=== PATIENT | female | born 1955 | race Caucasian/White ===

== ENCOUNTER 2021-04-08 12:24 | Inpatient (IN) | payer OTHER, MEDICAID ==
[~2021-04-08] VITALS: Ht 160 cm; Wt 49.0 kg
[~2021-04-08 12:24] MED LIST: ENAL5TAB10; FLUT250M9; GABA300C10; INSLANTI; METF-370; NAPR-223; NOVOLIN R; RABE20TA19; SIMV-8
[2021-04-08] MEDS ORDERED: SODIUM CHLORIDE 0.9% 500 ML IV ONE (12:45)
[2021-04-08] MEDS ORDERED: TETANUS-DIPTH-ACEL PERTUSSIS 0.5ML SYR Tdap IM ONE (12:45)
[2021-04-08] MEDS: AMPICILLIN & SULBACTAM SODIUM 3 GM in SODIUM CHL 0.9% 100 ML IV SCH ×2 (13:20→19:31)
[2021-04-08 13:26] LABS: Basophils # (auto) 0 10 ^3/uL (0-0.2); Basophils % (auto) 0.2 % (0.0-2.0); Eosinophils # (auto) 0 10 ^3/uL (0-0.8); Eosinophils % (auto) 0.4 % (0.0-7.0); Hemoglobin 13.2 g/dL (12.2-16.2); Lymphocytes # (auto) 1.1 10 ^3/uL (0.4-5.4); Mean Corpuscular Hemoglobin 29.4 pg (28.0-32.0); Mean Corpuscular Hgb Conc. 33.8 g/dL (32.0-36.0); Neutrophils # (auto) 7.3 10 ^3/uL (1.6-8.6); Neutrophils % (auto) 76.4 % (37.0-80.0); Red Blood Cells 4.48 10^6/uL (4.0-5.20); Red Cell Distribution Width 13.1 % (11.8-14.3); White Blood Cell 9.6 10^3/uL (4.4-10.8)
[2021-04-08 13:47] LABS: Albumin 3.1 g/dL (3.4-5.0); BUN/Creatinine Ratio 11.7; Calcium 8.7 mg/dL (8.5-10.1); Potassium 3.8 mmol/L (3.5-5.1)
[2021-04-08 13:50] LABS: Bilirubin, Total 0.6 mg/dL (0.2-1.0); Total Protein 7.1 g/dL (6.4-8.2)
[2021-04-08] MEDS ORDERED: cloNIDine HCL 0.1 MG TAB PO ONE (15:00)
[2021-04-08] MEDS ORDERED: ACETAMINOPHEN 325 MG TAB PO PRN (17:00)
[2021-04-08] MEDS ORDERED: DOCUSATE SOD 100 MG CAP PO PRN (17:00)
[2021-04-08] MEDS ORDERED: SODIUM CHLORIDE 0.9% 1,000 ML IV SCH (17:00)
[2021-04-08] MEDS ORDERED: ONDANSETRON HCL 4 MG/2 ML VIAL IV PRN (17:00)
[2021-04-08] MEDS ORDERED: DEXTROSE (50%) 50ML SYRG IV PRN (17:30)
[2021-04-08] MEDS: SODIUM CHLORIDE 0.9% 1,000 ML IV SCH (17:49)
[2021-04-08] MEDS: hydrALAZINE HCL 25 MG TAB PO PRN (19:39)
[2021-04-08] MEDS: ACCU-CHEK COMFORT CURVE STRIP VI SCH (21:51)
[2021-04-08] MEDS: InsuLIN REG 1unit/0.01ml Soln (100units/ml) SC SCH (21:52)
[2021-04-08] MEDS: NIFEdipine 10 MG CAP PO SCH (22:00)
[2021-04-08] MEDS: INSULIN LANTUS (GLARGINE) 1 /0.01ml (100units/ml) SC SCH (22:00)
[2021-04-08] MEDS: HYDROcodone-ACET 5/325MG TAB PO PRN (22:42)
[2021-04-09] MEDS: AMPICILLIN & SULBACTAM SODIUM 3 GM in SODIUM CHL 0.9% 100 ML IV SCH ×5 (00:45→21:47)
[2021-04-09] MEDS: NIFEdipine 10 MG CAP PO SCH ×3 (06:00→21:58)
[2021-04-09 06:09] LABS: Basophils # (auto) 0 10 ^3/uL (0-0.2); Basophils % (auto) 0.3 % (0.0-2.0); Eosinophils # (auto) 0.1 10 ^3/uL (0-0.8); Eosinophils % (auto) 0.8 % (0.0-7.0); Hematocrit 32.5 % (36.0-46.0); Hemoglobin 11.5 g/dL (12.2-16.2); Lymphocytes # (auto) 1.4 10 ^3/uL (0.4-5.4); Lymphocytes % (auto) 19.4 % (10.0-50.0); Mean Corpuscular Hemoglobin 30.3 pg (28.0-32.0); Mean Corpuscular Hgb Conc. 35.5 g/dL (32.0-36.0); Mean Corpuscular Volume 85.5 fL (80.0-100.0); Monocytes # (auto) 0.7 10 ^3/uL (0-1.3); Monocytes % (auto) 10.4 % (0.0-12.0); Neutrophils # (auto) 4.9 10 ^3/uL (1.6-8.6); Neutrophils % (auto) 69.1 % (37.0-80.0); Red Cell Distribution Width 13.2 % (11.8-14.3); White Blood Cell 7.1 10^3/uL (4.4-10.8)
[2021-04-09] MEDS: ACCU-CHEK COMFORT CURVE STRIP VI SCH ×4 (06:26→21:47)
[2021-04-09] MEDS: InsuLIN REG 1unit/0.01ml Soln (100units/ml) SC SCH ×4 (06:27→21:57)
[2021-04-09 06:32] LABS: Potassium 3.3 mmol/L (3.5-5.1)
[2021-04-09 06:38] LABS: Albumin 2.3 g/dL (3.4-5.0); BUN/Creatinine Ratio 13.9; Calcium 8.1 mg/dL (8.5-10.1)
[2021-04-09 06:41] LABS: Bilirubin, Total 0.3 mg/dL (0.2-1.0); Total Protein 5.6 g/dL (6.4-8.2)
[2021-04-09] MEDS: SODIUM CHLORIDE 0.9% 1,000 ML IV SCH ×2 (06:45→20:10)
[2021-04-09] MEDS: HYDROcodone-ACET 5/325MG TAB PO PRN ×3 (06:46→20:40)
[2021-04-09 09:00] VITALS: BP 125/66
[2021-04-09] MEDS: ENOXAPARIN SOD 30 MG/0.3 ML SYRINGE SC SCH (09:57)
[2021-04-09 13:00] VITALS: BP 144/114
[2021-04-09 17:44] VITALS: BP 147/80
[2021-04-09] MEDS: INSULIN LANTUS (GLARGINE) 1 /0.01ml (100units/ml) SC SCH (21:57)
[2021-04-09 22:00] VITALS: BP 132/85
[2021-04-10 05:00] VITALS: BP 165/78
[2021-04-10] MEDS: NIFEdipine 10 MG CAP PO SCH ×3 (05:10→22:03)
[2021-04-10] MEDS: ACCU-CHEK COMFORT CURVE STRIP VI SCH ×4 (06:18→22:04)
[2021-04-10] MEDS: InsuLIN REG 1unit/0.01ml Soln (100units/ml) SC SCH ×4 (06:18→22:16)
[2021-04-10 07:06] LABS: Basophils # (auto) 0 10 ^3/uL (0-0.2); Basophils % (auto) 0.3 % (0.0-2.0); Eosinophils # (auto) 0.1 10 ^3/uL (0-0.8); Eosinophils % (auto) 1.3 % (0.0-7.0); Hematocrit 33.6 % (36.0-46.0); Lymphocytes # (auto) 1.4 10 ^3/uL (0.4-5.4); Lymphocytes % (auto) 15.2 % (10.0-50.0); Mean Corpuscular Hemoglobin 30.3 pg (28.0-32.0); Mean Corpuscular Hgb Conc. 35.6 g/dL (32.0-36.0); Mean Corpuscular Volume 85.1 fL (80.0-100.0); Monocytes # (auto) 0.8 10 ^3/uL (0-1.3); Monocytes % (auto) 8.6 % (0.0-12.0); Neutrophils % (auto) 74.6 % (37.0-80.0); Nucleated Red Blood Cells % 0.1 %; Red Blood Cells 3.95 10^6/uL (4.0-5.20); Red Cell Distribution Width 13.5 % (11.8-14.3); White Blood Cell 9.4 10^3/uL (4.4-10.8)
[2021-04-10 07:35] LABS: Potassium 3.3 mmol/L (3.5-5.1)
[2021-04-10 07:41] LABS: Albumin 2.4 g/dL (3.4-5.0); Calcium 8.2 mg/dL (8.5-10.1)
[2021-04-10 07:44] LABS: Bilirubin, Total 0.2 mg/dL (0.2-1.0)
[2021-04-10] MEDS: HYDROcodone-ACET 5/325MG TAB PO PRN (08:33)
[2021-04-10 09:00] VITALS: BP 140/73
[2021-04-10] MEDS: SODIUM CHLORIDE 0.9% 1,000 ML IV SCH (09:30)
[2021-04-10] MEDS: AMPICILLIN & SULBACTAM SODIUM 3 GM in SODIUM CHL 0.9% 100 ML IV SCH ×2 (09:43→22:02)
[2021-04-10] MEDS: ENOXAPARIN SOD 30 MG/0.3 ML SYRINGE SC SCH (09:44)
[2021-04-10 13:00] VITALS: BP 146/75
[2021-04-10 17:00] VITALS: BP 137/88
[2021-04-10 21:49] VITALS: BP 96/76
[2021-04-10] MEDS: INSULIN LANTUS (GLARGINE) 1 /0.01ml (100units/ml) SC SCH (22:17)
[2021-04-11] VITALS (7 sets, daily range): BP systolic 112–156; BP diastolic 68–95
[2021-04-11] MEDS: NIFEdipine 10 MG CAP PO SCH ×3 (05:08→22:39)
[2021-04-11] MEDS: ACCU-CHEK COMFORT CURVE STRIP VI SCH ×4 (06:04→22:52)
[2021-04-11] MEDS: InsuLIN REG 1unit/0.01ml Soln (100units/ml) SC SCH ×4 (06:04→22:54)
[2021-04-11] MEDS: ENOXAPARIN SOD 30 MG/0.3 ML SYRINGE SC SCH (09:43)
[2021-04-11] MEDS: AMPICILLIN & SULBACTAM SODIUM 3 GM in SODIUM CHL 0.9% 100 ML IV SCH ×2 (09:43→22:51)
[2021-04-11] MEDS: HYDROcodone-ACET 5/325MG TAB PO PRN (22:41)
[2021-04-11] MEDS: INSULIN LANTUS (GLARGINE) 1 /0.01ml (100units/ml) SC SCH (22:52)
[2021-04-12 05:00] VITALS: BP 150/79
[2021-04-12 05:23] LABS: Basophils # (auto) 0 10 ^3/uL (0-0.2); Basophils % (auto) 0.6 % (0.0-2.0); Eosinophils # (auto) 0.2 10 ^3/uL (0-0.8); Eosinophils % (auto) 3.4 % (0.0-7.0); Hematocrit 32.4 % (36.0-46.0); Hemoglobin 11.2 g/dL (12.2-16.2); Lymphocytes # (auto) 1.4 10 ^3/uL (0.4-5.4); Lymphocytes % (auto) 25.7 % (10.0-50.0); Mean Corpuscular Hemoglobin 29.7 pg (28.0-32.0); Mean Corpuscular Hgb Conc. 34.7 g/dL (32.0-36.0); Mean Corpuscular Volume 85.8 fL (80.0-100.0); Monocytes # (auto) 0.6 10 ^3/uL (0-1.3); Monocytes % (auto) 11.2 % (0.0-12.0); Neutrophils # (auto) 3.3 10 ^3/uL (1.6-8.6); Neutrophils % (auto) 59.1 % (37.0-80.0); Nucleated Red Blood Cells % 0.1 %; Red Blood Cells 3.78 10^6/uL (4.0-5.20); Red Cell Distribution Width 13.1 % (11.8-14.3); White Blood Cell 5.5 10^3/uL (4.4-10.8)
[2021-04-12 05:46] LABS: Albumin 2.3 g/dL (3.4-5.0); BUN/Creatinine Ratio 21.1; Calcium 8.6 mg/dL (8.5-10.1); Potassium 3.5 mmol/L (3.5-5.1)
[2021-04-12] MEDS: NIFEdipine 10 MG CAP PO SCH ×3 (05:51→22:00)
[2021-04-12 05:56] LABS: Bilirubin, Total 0.2 mg/dL (0.2-1.0); Total Protein 5.9 g/dL (6.4-8.2)
[2021-04-12] MEDS: InsuLIN REG 1unit/0.01ml Soln (100units/ml) SC SCH ×4 (06:12→22:29)
[2021-04-12] MEDS: ACCU-CHEK COMFORT CURVE STRIP VI SCH ×4 (06:12→22:00)
[2021-04-12 09:00] VITALS: BP 147/79
[2021-04-12] MEDS: AMPICILLIN & SULBACTAM SODIUM 3 GM in SODIUM CHL 0.9% 100 ML IV SCH ×2 (09:44→22:00)
[2021-04-12] MEDS: ENOXAPARIN SOD 30 MG/0.3 ML SYRINGE SC SCH (09:44)
[2021-04-12 13:00] VITALS: BP 155/76
[2021-04-12 16:50] VITALS: BP 165/78
[2021-04-12] MEDS: hydrALAZINE HCL 25 MG TAB PO PRN (17:33)
[2021-04-12 21:50] VITALS: BP 180/81
[2021-04-12] MEDS: INSULIN LANTUS (GLARGINE) 1 /0.01ml (100units/ml) SC SCH (22:28)
[2021-04-13 05:01] LABS: Basophils # (auto) 0 10 ^3/uL (0-0.2); Basophils % (auto) 0.6 % (0.0-2.0); Eosinophils # (auto) 0.2 10 ^3/uL (0-0.8); Eosinophils % (auto) 2.5 % (0.0-7.0); Hematocrit 35.1 % (36.0-46.0); Lymphocytes # (auto) 1.5 10 ^3/uL (0.4-5.4); Lymphocytes % (auto) 21.3 % (10.0-50.0); Mean Corpuscular Hemoglobin 29.3 pg (28.0-32.0); Mean Corpuscular Hgb Conc. 34.3 g/dL (32.0-36.0); Mean Corpuscular Volume 85.7 fL (80.0-100.0); Monocytes # (auto) 0.8 10 ^3/uL (0-1.3); Monocytes % (auto) 11.4 % (0.0-12.0); Neutrophils # (auto) 4.4 10 ^3/uL (1.6-8.6); Neutrophils % (auto) 64.2 % (37.0-80.0); Red Cell Distribution Width 13.4 % (11.8-14.3); White Blood Cell 6.9 10^3/uL (4.4-10.8)
[2021-04-13 05:18] LABS: Albumin 2.5 g/dL (3.4-5.0); Calcium 8.8 mg/dL (8.5-10.1); Potassium 3.9 mmol/L (3.5-5.1)
[2021-04-13 05:20] LABS: BUN/Creatinine Ratio 22.4
[2021-04-13 05:23] LABS: Bilirubin, Total 0.2 mg/dL (0.2-1.0); Total Protein 6.5 g/dL (6.4-8.2)
[2021-04-13 05:40] VITALS: BP 145/80
[2021-04-13] MEDS: NIFEdipine 10 MG CAP PO SCH ×3 (06:13→21:22)
[2021-04-13] MEDS: ACCU-CHEK COMFORT CURVE STRIP VI SCH ×4 (06:59→21:22)
[2021-04-13] MEDS: InsuLIN REG 1unit/0.01ml Soln (100units/ml) SC SCH ×4 (07:00→21:52)
[2021-04-13 07:30] VITALS: BP 145/80
[2021-04-13 09:00] VITALS: BP 151/84
[2021-04-13] MEDS: AMPICILLIN & SULBACTAM SODIUM 3 GM in SODIUM CHL 0.9% 100 ML IV SCH ×2 (09:45→21:21)
[2021-04-13] MEDS: ENOXAPARIN SOD 30 MG/0.3 ML SYRINGE SC SCH (09:45)
[2021-04-13 12:36] VITALS: BP 171/93
[2021-04-13 16:52] VITALS: BP 163/89
[2021-04-13] MEDS: INSULIN LANTUS (GLARGINE) 1 /0.01ml (100units/ml) SC SCH (21:41)
[2021-04-13 21:52] VITALS: BP 166/119
[2021-04-14 05:00] VITALS: BP 156/103
[2021-04-14 05:35] LABS: Basophils # (auto) 0.1 10 ^3/uL (0-0.2); Basophils % (auto) 0.9 % (0.0-2.0); Eosinophils # (auto) 0.2 10 ^3/uL (0-0.8); Eosinophils % (auto) 2.5 % (0.0-7.0); Lymphocytes # (auto) 1.5 10 ^3/uL (0.4-5.4); Lymphocytes % (auto) 23.3 % (10.0-50.0); Mean Corpuscular Hemoglobin 29.5 pg (28.0-32.0); Mean Corpuscular Hgb Conc. 34.4 g/dL (32.0-36.0); Mean Corpuscular Volume 85.9 fL (80.0-100.0); Monocytes # (auto) 0.7 10 ^3/uL (0-1.3); Monocytes % (auto) 9.9 % (0.0-12.0); Neutrophils # (auto) 4.2 10 ^3/uL (1.6-8.6); Neutrophils % (auto) 63.4 % (37.0-80.0); Nucleated Red Blood Cells % 0.1 %; Red Blood Cells 4.08 10^6/uL (4.0-5.20); Red Cell Distribution Width 13.4 % (11.8-14.3); White Blood Cell 6.6 10^3/uL (4.4-10.8)
[2021-04-14 06:04] LABS: Albumin 2.6 g/dL (3.4-5.0); BUN/Creatinine Ratio 23.7; Bilirubin, Total 0.2 mg/dL (0.2-1.0); Calcium 8.5 mg/dL (8.5-10.1); Total Protein 6.5 g/dL (6.4-8.2)
[2021-04-14] MEDS: NIFEdipine 10 MG CAP PO SCH ×3 (06:18→21:33)
[2021-04-14] MEDS: ACCU-CHEK COMFORT CURVE STRIP VI SCH ×4 (06:18→21:13)
[2021-04-14] MEDS: InsuLIN REG 1unit/0.01ml Soln (100units/ml) SC SCH ×4 (06:33→21:14)
[2021-04-14 08:00] VITALS: BP 124/75
[2021-04-14 08:30] VITALS: BP 124/75
[2021-04-14] MEDS: AMPICILLIN & SULBACTAM SODIUM 3 GM in SODIUM CHL 0.9% 100 ML IV SCH ×2 (10:30→21:28)
[2021-04-14] MEDS: ENOXAPARIN SOD 30 MG/0.3 ML SYRINGE SC SCH (10:30)
[2021-04-14 12:30] VITALS: BP 166/73
[2021-04-14 17:00] VITALS: BP 166/77
[2021-04-14] MEDS: INSULIN LANTUS (GLARGINE) 1 /0.01ml (100units/ml) SC SCH (21:14)
[2021-04-14 22:00] VITALS: BP 172/92
[2021-04-15 05:00] VITALS: BP 156/92
[2021-04-15] MEDS: NIFEdipine 10 MG CAP PO SCH ×3 (06:12→21:55)
[2021-04-15] MEDS: InsuLIN REG 1unit/0.01ml Soln (100units/ml) SC SCH ×4 (06:12→21:47)
[2021-04-15] MEDS: ACCU-CHEK COMFORT CURVE STRIP VI SCH ×4 (06:12→21:48)
[2021-04-15 09:00] VITALS: BP 145/71
[2021-04-15] MEDS: ENOXAPARIN SOD 30 MG/0.3 ML SYRINGE SC SCH (10:58)
[2021-04-15] MEDS: AMPICILLIN & SULBACTAM SODIUM 3 GM in SODIUM CHL 0.9% 100 ML IV SCH ×2 (11:20→21:55)
[2021-04-15] MEDS: hydrALAZINE HCL 25 MG TAB PO PRN (11:32)
[2021-04-15 13:00] VITALS: BP 158/79
[2021-04-15 17:00] VITALS: BP 113/68
[2021-04-15] MEDS: INSULIN LANTUS (GLARGINE) 1 /0.01ml (100units/ml) SC SCH (21:48)
[2021-04-15 22:00] VITALS: BP 155/70
[2021-04-16 05:00] VITALS: BP 167/78
[2021-04-16] MEDS: InsuLIN REG 1unit/0.01ml Soln (100units/ml) SC SCH ×2 (06:19→11:57)
[2021-04-16] MEDS: ACCU-CHEK COMFORT CURVE STRIP VI SCH ×2 (06:20→11:55)
[2021-04-16] MEDS: NIFEdipine 10 MG CAP PO SCH (06:22)
[2021-04-16] MEDS: hydrALAZINE HCL 25 MG TAB PO PRN (06:23)
[2021-04-16 09:00] VITALS: BP 116/74
[2021-04-16] MEDS: ENOXAPARIN SOD 30 MG/0.3 ML SYRINGE SC SCH (10:03)
[2021-04-16] MEDS: HYDROcodone-ACET 5/325MG TAB PO PRN (10:04)
[2021-04-16] MEDS: AMPICILLIN & SULBACTAM SODIUM 3 GM in SODIUM CHL 0.9% 100 ML IV SCH (10:07)
[2021-04-16] MEDS ORDERED: AMOX500T86 PO (11:01)
[2021-04-16] MEDS ORDERED: HYDR-4902 PO (11:01)
[2021-04-16 13:00] VITALS: BP 152/88
[2021-04-16 13:11] VITALS: BP 167/78
== END 2021-04-16 13:55 | disposition home or self-care (01) | DRG 605 ==
LOC: ER 12:24 → TELE 16:44 → TELE-WESTW 20:55
PROVIDERS: ADMIT Internal Medicine; ATTEND Family Medicine
PROC: 05HC33Z Insertion of Infusion Device into Left Basilic Vein, Percutaneous Approach (ICD-10-PCS; principal; 2021-04-11)
PROC: B54NZZA Ultrasonography of Left Upper Extremity Veins, Guidance (ICD-10-PCS; 2021-04-11)
DX: S61.250A Open bite of right index finger without damage to nail, initial encounter (principal); N17.9 Acute kidney failure, unspecified; L03.011 Cellulitis of right finger; E11.9 Type 2 diabetes mellitus without complications; D64.9 Anemia, unspecified; G89.29 Other chronic pain; E87.6 Hypokalemia; F17.210 Nicotine dependence, cigarettes, uncomplicated; Z20.822 Contact with and (suspected) exposure to COVID-19; I10 Essential (primary) hypertension; Z83.3 Family history of diabetes mellitus; Z90.710 Acquired absence of both cervix and uterus; Z88.5 Allergy status to narcotic agent; W55.01XA Bitten by cat, initial encounter; Y93.89 Activity, other specified; Y92.89 Other specified places as the place of occurrence of the external cause; Y99.8 Other external cause status; Z79.84 Long term (current) use of oral hypoglycemic drugs
CPT/HCPCS: 36415; 73200; 73218; 80053; 82962; 85025; 85652; 86141; 87426; 90471; 90715; 96360; 96361; G0378; J1815

== ENCOUNTER 2021-08-20 00:59 | Inpatient (IN) | payer OTHER, MEDICAID ==
[~2021-08-20] VITALS: Ht 157.5 cm; Wt 53.0 kg
[~2021-08-20 00:59] MED LIST changes: +AMOX500T86 PO; +HYDR-4902 PO
[2021-08-20] MEDS ORDERED: MORPHINE SULFATE 4 MG/ML SYR/VIAL IV ONE (04:30)
[2021-08-20 04:43] LABS: Basophils # (auto) 0 10 ^3/uL (0-0.2); Basophils % (auto) 0.2 % (0.0-2.0); Eosinophils # (auto) 0 10 ^3/uL (0-0.8); Eosinophils % (auto) 0.1 % (0.0-7.0); Hematocrit 39.8 % (36.0-46.0); Hemoglobin 13.5 g/dL (12.2-16.2); Lymphocytes # (auto) 0.6 10 ^3/uL (0.4-5.4); Lymphocytes % (auto) 7.1 % (10.0-50.0); Mean Corpuscular Hemoglobin 28.9 pg (28.0-32.0); Mean Corpuscular Volume 85.1 fL (80.0-100.0); Monocytes # (auto) 0.6 10 ^3/uL (0-1.3); Monocytes % (auto) 7.1 % (0.0-12.0); Neutrophils # (auto) 7.8 10 ^3/uL (1.6-8.6); Neutrophils % (auto) 85.5 % (37.0-80.0); Red Blood Cells 4.68 10^6/uL (4.0-5.20); Red Cell Distribution Width 13.3 % (11.8-14.3); White Blood Cell 9.1 10^3/uL (4.4-10.8)
[2021-08-20 05:00] LABS: Albumin 3.6 g/dL (3.4-5.0); BUN/Creatinine Ratio 20.4; Calcium 8.8 mg/dL (8.5-10.1); Potassium 3.9 mmol/L (3.5-5.1)
[2021-08-20 05:03] LABS: Bilirubin, Total 0.4 mg/dL (0.2-1.0); Total Protein 7.5 g/dL (6.4-8.2)
[2021-08-20] MEDS ORDERED: DEXTROSE (50%) 50ML SYRG IV PRN (07:00)
[2021-08-20] MEDS ORDERED: MORPHINE SULFATE INJ 2 MG/ml SYRG IV PRN (07:00)
[2021-08-20] MEDS ORDERED: HYDROcodone-ACET 5/325MG TAB PO PRN (07:00)
[2021-08-20] MEDS ORDERED: ONDANSETRON HCL 4 MG/2 ML VIAL IV PRN (07:00)
[2021-08-20] MEDS ORDERED: ACETAMINOPHEN 325 MG TAB PO PRN (07:00)
[2021-08-20 07:28] LABS: INR 0.97 (0.9-1.15); Partial Thromboplastin Time 29.1 sec (24.6-33.4)
[2021-08-20] MEDS: ACCU-CHEK COMFORT CURVE STRIP VI SCH ×4 (07:43→20:54)
[2021-08-20] MEDS: InsuLIN REG 1unit/0.01ml Soln (100units/ml) SC SCH ×4 (07:58→20:54)
[2021-08-20] MEDS: MORPHINE SULFATE INJ 2 MG/ml SYRG IV PRN ×3 (08:15→23:42)
[2021-08-20] MEDS: NIFEdipine ER 30 MG TAB PO SCH (09:50)
[2021-08-20] MEDS: PANTOPRAZOLE 40 MG TAB PO SCH (09:50)
[2021-08-20 17:00] VITALS: BP 136/68
[2021-08-20 17:49] VITALS: BP 136/68
[2021-08-20] MEDS: ATORVASTATIN 20 MG TAB PO SCH (20:49)
[2021-08-20 22:00] VITALS: BP 143/73
[2021-08-21] VITALS (11 sets, daily range): BP systolic 119–140; BP diastolic 51–78
[2021-08-21] MEDS: InsuLIN REG 1unit/0.01ml Soln (100units/ml) SC SCH ×4 (05:18→22:12)
[2021-08-21] MEDS: ACCU-CHEK COMFORT CURVE STRIP VI SCH ×4 (05:18→21:07)
[2021-08-21 06:49] LABS: Basophils # (auto) 0 10 ^3/uL (0-0.2); Basophils % (auto) 0.3 % (0.0-2.0); Eosinophils # (auto) 0.1 10 ^3/uL (0-0.8); Eosinophils % (auto) 0.7 % (0.0-7.0); Hematocrit 37.2 % (36.0-46.0); Hemoglobin 12.6 g/dL (12.2-16.2); Lymphocytes # (auto) 1.2 10 ^3/uL (0.4-5.4); Lymphocytes % (auto) 14.3 % (10.0-50.0); Mean Corpuscular Hemoglobin 29.2 pg (28.0-32.0); Mean Corpuscular Hgb Conc. 33.9 g/dL (32.0-36.0); Mean Corpuscular Volume 86.1 fL (80.0-100.0); Monocytes # (auto) 0.7 10 ^3/uL (0-1.3); Monocytes % (auto) 8.8 % (0.0-12.0); Neutrophils # (auto) 6.1 10 ^3/uL (1.6-8.6); Neutrophils % (auto) 75.9 % (37.0-80.0); Red Blood Cells 4.32 10^6/uL (4.0-5.20); Red Cell Distribution Width 13.8 % (11.8-14.3); White Blood Cell 8.1 10^3/uL (4.4-10.8)
[2021-08-21 07:06] LABS: INR 0.97 (0.9-1.15); Partial Thromboplastin Time 31.3 sec (24.6-33.4)
[2021-08-21 07:08] LABS: Potassium 3.7 mmol/L (3.5-5.1)
[2021-08-21 07:18] LABS: Albumin 3.1 g/dL (3.4-5.0); BUN/Creatinine Ratio 21.3; Bilirubin, Total 0.7 mg/dL (0.2-1.0); Calcium 8.7 mg/dL (8.5-10.1); Total Protein 7.3 g/dL (6.4-8.2)
[2021-08-21] MEDS: PANTOPRAZOLE 40 MG TAB PO SCH (08:10)
[2021-08-21] MEDS: NIFEdipine ER 30 MG TAB PO SCH (08:10)
[2021-08-21] MEDS: MORPHINE SULFATE INJ 2 MG/ml SYRG IV PRN (08:11)
[2021-08-21] MEDS ORDERED: ceFAZolin 1GM/50ML 50 ML IV ONE (14:10)
[2021-08-21] MEDS ORDERED: TRANEXAMIC ACID 20 ML ONE (15:04)
[2021-08-21] MEDS ORDERED: BUPIVACAINE 0.25% INJ 50ML VIAL ONE (15:04)
[2021-08-21] MEDS ORDERED: ONDANSETRON HCL 4 MG/2 ML VIAL ONE (15:17)
[2021-08-21] MEDS ORDERED: GLYCOPYRROLATE 0.2 MG/ML 1ML VIAL ONE (15:17)
[2021-08-21] MEDS ORDERED: KETOROLAC TROMETH 30 MG/ML 1ML VIAL ONE (15:17)
[2021-08-21] MEDS ORDERED: ePHEDrine SULFATE 50 MG/ML AMP ONE (15:17)
[2021-08-21] MEDS ORDERED: fentaNYL CITRATE 100 MCG/2 ML VL ONE (15:17)
[2021-08-21] MEDS ORDERED: PHENYLEPHRINE HCL 10 MG/ML VL ONE (15:17)
[2021-08-21] MEDS ORDERED: BUPIVACAINE/DEXTROSE MPF 0.75% 2 ML AMP IT ONE (15:17)
[2021-08-21] MEDS ORDERED: PROPOFOL 10 MG/ML 20 ML IV ONE (15:17)
[2021-08-21] MEDS ORDERED: MIDAZOLAM HCL 2MG/2ML 2ml VIAL (1mg/ml) ONE (15:17)
[2021-08-21] MEDS ORDERED: MORPHINE SULF PF 5 MG/10 ML VIAL ONE (15:21)
[2021-08-21] MEDS ORDERED: DexAMETHasone SOD PHOS 10MG/1ML VIAL INJ IV PRN (17:15)
[2021-08-21] MEDS ORDERED: NALOXONE HCL 0.4 MG/ML VIAL IV PRN (17:15)
[2021-08-21] MEDS ORDERED: ONDANSETRON HCL 4 MG/2 ML VIAL IV PRN ×2 (17:15)
[2021-08-21] MEDS ORDERED: diphenhdrAMINE HCL 50 MG/1 ML VL IV PRN (17:15)
[2021-08-21] MEDS ORDERED: ACCU-CHEK COMFORT CURVE STRIP VI ONE (17:15)
[2021-08-21] MEDS ORDERED: ceFAZolin 1GM/50ML 50 ML IV SCH (18:00)
[2021-08-21] MEDS: ceFAZolin 1GM/50ML 50 ML IV SCH (20:04)
[2021-08-21] MEDS: ATORVASTATIN 20 MG TAB PO SCH (21:06)
[2021-08-22] VITALS (19 sets, daily range): BP systolic 118–178; BP diastolic 54–119
[2021-08-22] MEDS: ceFAZolin 1GM/50ML 50 ML IV SCH ×2 (02:05→09:34)
[2021-08-22] MEDS: ACCU-CHEK COMFORT CURVE STRIP VI SCH ×4 (06:19→21:13)
[2021-08-22] MEDS: InsuLIN REG 1unit/0.01ml Soln (100units/ml) SC SCH ×4 (06:19→21:16)
[2021-08-22] MEDS: NIFEdipine ER 30 MG TAB PO SCH (09:38)
[2021-08-22] MEDS: PANTOPRAZOLE 40 MG TAB PO SCH (09:38)
[2021-08-22] MEDS: LORazepam 2MG/ML-1ML VIAL IV PRN (16:23)
[2021-08-22 16:50] LABS: Urine Amorphous Crystal FEW /hpf (None Seen); Urine Bacteria FEW /hpf (None Seen); Urine Blood 2+ /uL (Negative); Urine Mucus FEW (None Seen); Urine Specific Gravity 1.013 (1.001-1.035); Urine WBC 7 /hpf (0 - 5)
[2021-08-22] MEDS: ATORVASTATIN 20 MG TAB PO SCH (21:16)
[2021-08-22] MEDS: KETOROLAC TROMETH 30 MG/ML 1ML VIAL IV PRN (23:47)
[2021-08-23] MEDS: LORazepam 2MG/ML-1ML VIAL IV PRN (00:29)
[2021-08-23 05:15] VITALS: BP 130/73
[2021-08-23] MEDS: ACCU-CHEK COMFORT CURVE STRIP VI SCH ×4 (06:20→21:29)
[2021-08-23] MEDS: InsuLIN REG 1unit/0.01ml Soln (100units/ml) SC SCH ×4 (06:21→23:01)
[2021-08-23] MEDS: NIFEdipine ER 30 MG TAB PO SCH (10:00)
[2021-08-23] MEDS: PANTOPRAZOLE 40 MG TAB PO SCH (10:00)
[2021-08-23] MEDS: KETOROLAC TROMETH 30 MG/ML 1ML VIAL IV PRN (21:29)
[2021-08-23] MEDS: ATORVASTATIN 20 MG TAB PO SCH (21:29)
[2021-08-23 22:00] VITALS: BP 154/66
[2021-08-23 22:50] VITALS: BP 145/71
[2021-08-24 05:00] VITALS: BP 154/75
[2021-08-24] MEDS: InsuLIN REG 1unit/0.01ml Soln (100units/ml) SC SCH ×4 (06:06→22:06)
[2021-08-24] MEDS: ACCU-CHEK COMFORT CURVE STRIP VI SCH ×4 (06:07→22:05)
[2021-08-24 08:45] VITALS: BP 138/70
[2021-08-24] MEDS: PANTOPRAZOLE 40 MG TAB PO SCH (09:05)
[2021-08-24] MEDS: NIFEdipine ER 30 MG TAB PO SCH (09:05)
[2021-08-24] MEDS ORDERED: ENOXAPARIN SOD 30 MG/0.3 ML SYRINGE SC ONE (10:30)
[2021-08-24 12:30] VITALS: BP 151/76
[2021-08-24] MEDS: KETOROLAC TROMETH 30 MG/ML 1ML VIAL IV PRN (14:58)
[2021-08-24 17:00] VITALS: BP 123/64
[2021-08-24 22:00] VITALS: BP 125/67
[2021-08-24] MEDS: ATORVASTATIN 20 MG TAB PO SCH (22:03)
[2021-08-24] MEDS: MORPHINE SULFATE INJ 2 MG/ml SYRG IV PRN (22:05)
[2021-08-25] MEDS: KETOROLAC TROMETH 30 MG/ML 1ML VIAL IV PRN ×2 (00:44→15:12)
[2021-08-25 05:00] VITALS: BP 123/75
[2021-08-25] MEDS: ACCU-CHEK COMFORT CURVE STRIP VI SCH ×4 (05:24→23:01)
[2021-08-25] MEDS: InsuLIN REG 1unit/0.01ml Soln (100units/ml) SC SCH ×4 (05:29→23:01)
[2021-08-25 08:15] VITALS: BP 124/70
[2021-08-25] MEDS: PANTOPRAZOLE 40 MG TAB PO SCH (10:24)
[2021-08-25] MEDS: NIFEdipine ER 30 MG TAB PO SCH (10:24)
[2021-08-25] MEDS: ENOXAPARIN SOD 30 MG/0.3 ML SYRINGE SC SCH (10:25)
[2021-08-25 12:12] VITALS: BP 126/66
[2021-08-25 17:05] VITALS: BP 114/58
[2021-08-25 22:00] VITALS: BP 124/58
[2021-08-25] MEDS: ATORVASTATIN 20 MG TAB PO SCH (22:54)
[2021-08-26 05:00] VITALS: BP 121/58
[2021-08-26] MEDS: InsuLIN REG 1unit/0.01ml Soln (100units/ml) SC SCH ×2 (06:47→12:41)
[2021-08-26] MEDS: ACCU-CHEK COMFORT CURVE STRIP VI SCH ×2 (07:07→11:34)
[2021-08-26 09:00] VITALS: BP 146/72
[2021-08-26] MEDS: PANTOPRAZOLE 40 MG TAB PO SCH (10:00)
[2021-08-26] MEDS: NIFEdipine ER 30 MG TAB PO SCH (10:00)
[2021-08-26] MEDS: ENOXAPARIN SOD 30 MG/0.3 ML SYRINGE SC SCH (10:01)
[2021-08-26] MEDS ORDERED: DOCUSATE SOD 100 MG CAP PO ONE (12:30)
[2021-08-26] MEDS ORDERED: LACTULOSE 20Gm/30ML SOLN PO ONE (12:30)
[2021-08-26 13:00] VITALS: BP 142/66
[2021-08-26 14:56] LABS: Calcium 8.8 mg/dL (8.5-10.1); Potassium 4.3 mmol/L (3.5-5.1)
[2021-08-26 14:58] LABS: BUN/Creatinine Ratio 26.1
[2021-08-26 15:03] VITALS: BP 154/80
== END 2021-08-26 16:00 | DRG 480 ==
LOC: ER 00:59 → EDBD 00:59 → OVERFLOW 07:01 → WEST WING 17:00 → TELE-WESTW 08-21 18:37
PROVIDERS: ADMIT Nurse Practitioner; ATTEND Internal Medicine
PROC: BQ101ZZ Fluoroscopy of Right Hip using Low Osmolar Contrast (ICD-10-PCS; 2021-08-21)
PROC: 0QS604Z Reposition Right Upper Femur with Internal Fixation Device, Open Approach (ICD-10-PCS; principal; 2021-08-21 15:39)
DX: S72.141A Displaced intertrochanteric fracture of right femur, initial encounter for closed fracture (principal); N17.0 Acute kidney failure with tubular necrosis; J44.1 Chronic obstructive pulmonary disease with (acute) exacerbation; F17.210 Nicotine dependence, cigarettes, uncomplicated; E78.00 Pure hypercholesterolemia, unspecified; Z20.822 Contact with and (suspected) exposure to COVID-19; I12.9 Hypertensive chronic kidney disease with stage 1 through stage 4 chronic kidney disease, or unspecified chronic kidney disease; E78.5 Hyperlipidemia, unspecified; W11.XXXA Fall on and from ladder, initial encounter; N18.9 Chronic kidney disease, unspecified; E11.22 Type 2 diabetes mellitus with diabetic chronic kidney disease; Z91.81 History of falling; Z83.3 Family history of diabetes mellitus; Z90.710 Acquired absence of both cervix and uterus; Z88.0 Allergy status to penicillin; Y93.39 Activity, other involving climbing, rappelling and jumping off; Y92.095 Swimming-pool of other non-institutional residence as the place of occurrence of the external cause; Y99.8 Other external cause status
CPT/HCPCS: 36415; 71045; 72170; 73501; 73502; 76000; 80048; 80053; 81001; 82962; 85025; 85610; 85730; 86850; 86900; 86901; 93005; 96374; 96375; 97110; 97116; 97163; 97530; G0378; J0690; J1815; J1885; J2250; J2405; J2704; J3490